=== PATIENT | female | born 1960 | race Caucasian/White ===

== ENCOUNTER 2017-04-14 16:17 | Outpatient (CLI) | payer MEDICAID ==
[2017-04-14 13:23] LABS: BASOPHILS % (AUTO) 0.8 %; EOSINOPHILS % (AUTO) 0.7 %; HCT - HEMATOCRIT 39.2 % (37.0-47.0); HGB - HEMOGLOBIN 13.5 g/dL (12.0-16.0); LYMPHOCYTES # (AUTO) 2.5 10^3/uL (1.5-3.5); LYMPHOCYTES % (AUTO) 53.7 %; MEAN CORPUSCULAR HEMOGLOBIN 30.3 pg (27.0-31.0); MEAN CORPUSCULAR HGB CONC 34.4 g/dL (32.0-36.0); MEAN CORPUSCULAR VOLUME 88.1 fL (81.0-99.0); MEAN PLATELET VOLUME 9.5 fL (7.9-10.8); MONOCYTES # (AUTO) 0.3 10^3/uL (0.0-1.0); MONOCYTES % (AUTO) 6.4 %; NEUTROPHILS # (AUTO) 1.8 10^3/uL (1.5-6.6); NEUTROPHILS % (AUTO) 38.4 %; RED BLOOD COUNT 4.45 10^6/uL (4.20-5.40); RED CELL DISTRIBUTION WIDTH 13.7 % (12.0-15.0); UNCORRECTED WHITE BLOOD COUNT 4.6 x10^3/uL; WHITE BLOOD COUNT 4.6 x10^3/uL (4.8-10.8)
[2017-04-14 13:44] LABS: ALBUMIN/GLOBULIN RATIO 1.7 (1.0-2.2); BILIRUBIN,TOTAL 0.4 mg/dL (0.2-1.0); CALCIUM 9.4 mg/dL (8.5-10.3); CREATININE 0.8 mg/dL (0.4-1.0); TOTAL PROTEIN 6.7 g/dL (6.7-8.2)
== END 2017-04-14 16:18 | disposition home or self-care (01) ==
LOC: LAB.N 16:17
PROVIDERS: ATTEND Nurse Practitioner Gerontology
DX: Z13.9 Encounter for screening, unspecified (principal)
CPT/HCPCS: 36415; 80053; 85025

== ENCOUNTER 2018-04-26 09:53 | Outpatient (CLI) | payer MEDICAID ==
[2018-04-26 14:24] LABS: CHOL/HDL RATIO 3.2 (<4.4); CHOLESTEROL 191 mg/dL; HDL CHOLESTEROL 59 mg/dL; LDL CHOLESTEROL,CALCULATED 117 mg/dL; VLDL CHOLESTEROL 15 mg/dL
== END 2018-04-26 09:54 | disposition home or self-care (01) ==
LOC: LAB.N 09:53
PROVIDERS: ATTEND Nurse Practitioner Gerontology
DX: Z13.9 Encounter for screening, unspecified (principal); R61 Generalized hyperhidrosis
CPT/HCPCS: 36415; 80061; 83721; 84443

== ENCOUNTER 2020-11-23 10:22 | Outpatient (CLI) | payer MEDICAID ==
[2020-11-23 18:35] LABS: BASOPHILS # (AUTO) 0.1 10^3/uL (0.0-0.1); BASOPHILS % (AUTO) 1.2 %; EOSINOPHILS % (AUTO) 0.5 %; HGB - HEMOGLOBIN 13.7 g/dL (12.0-16.0); LYMPHOCYTES # (AUTO) 2.3 10^3/uL (1.5-3.5); LYMPHOCYTES % (AUTO) 55.8 %; MEAN CORPUSCULAR HEMOGLOBIN 29.8 pg (27.0-31.0); MEAN CORPUSCULAR HGB CONC 32.8 g/dL (32.0-36.0); MEAN CORPUSCULAR VOLUME 90.9 fL (81.0-99.0); MEAN PLATELET VOLUME 10.2 fL (7.9-10.8); MONOCYTES # (AUTO) 0.3 10^3/uL (0.0-1.0); MONOCYTES % (AUTO) 6.2 %; NEUTROPHILS # (AUTO) 1.5 10^3/uL (1.5-6.6); NEUTROPHILS % (AUTO) 36.1 %; PLT - PLATELET COUNT 253 10^3/uL (130-450); RED CELL DISTRIBUTION WIDTH 13.2 % (12.0-15.0); WHITE BLOOD COUNT 4.2 x10^3/uL (4.8-10.8)
[2020-11-23 18:53] LABS: ALBUMIN 4.2 g/dL (3.2-5.5); ALBUMIN/GLOBULIN RATIO 1.7 (1.0-2.2); ALKALINE PHOSPHATASE 60 IU/L (42-121); ALT ALANINE AMINOTRANSFERASE 30 IU/L (10-60); AST ASPARTATE AMINOTRANSFERASE 23 IU/L (10-42); BILIRUBIN,TOTAL 0.7 mg/dL (0.2-1.0); BUN - BLOOD UREA NITROGEN 20 mg/dL (6-20); CALCIUM 9.3 mg/dL (8.5-10.3); CARBON DIOXIDE - CO2 26 mmol/L (21-32); CHLORIDE 106 mmol/L (101-111); CHOL/HDL RATIO 3.9 (<4.4); CHOLESTEROL 243 mg/dL; CREATININE 0.9 mg/dL (0.4-1.0); GLUCOSE 103 mg/dL (70-100); HDL CHOLESTEROL 62 mg/dL; LDL CHOLESTEROL,CALCULATED 169 mg/dL; LDL/HDL RATIO 2.7 (<4.4); SODIUM 140 mmol/L (135-145); TOTAL PROTEIN 6.7 g/dL (6.7-8.2); VLDL CHOLESTEROL 12 mg/dL
--- OUTSIDE RECORDS SUMMARY | 2020-11-28 01:33 | EXTERNAL MEDICAL SUMMARY RPT | Continuity of Care Document ---
:1960 Demographics Phone Unavailable Preferred Language [place]ut Marital Status Unknown Oriental Orthodox Affiliation Unknown Race Unknown Ethnic Group Unknown Author Organization [facility] Address [address] [id number] Phone Care Team Providers Name Role Phone Julian OBANDO, Unavailable Unavailable JULIAN LAM Unavailable Unavailable Bertha Chacon Unavailable Unavailable Cathie Lux Unavailable Unavailable Problems date description facility 2013-10-05 13:46 DISORDERS OF THYROID NEC [facility] 2016-01-18 10:54 AGE-RELATED OSTEOPOROSIS W/O [facility] CURRENT PATHOLOGICAL FRACTURE 2016-01-18 10:54 [facility] S[facility] OSTE[facility] 2016-02-13 08:36 ENCOUNTER FOR SCREENING, [facility] UNSPECIFIED 2017-04-14 16:17 ENCOUNTER FOR SCREENING, [facility] UNSPECIFIED 2018-04-26 09:53 GENERALIZED HYPERHIDROSIS [facility] 2018-04-26 09:53 ENCOUNTER FOR SCREENING, [facility] UNSPECIFIED 2020-11-23 00:00:00 TSH WITH REFLEX TO FT4 [facility] 2020-11-23 00:00:00 Screening for malignant [facility] neoplasms of colon [facility] 2020-11-23 00:00:00 COMPREHENSIVE METABOLIC PANEL [facility] 2020-11-23 00:00:00 LIPIDS SCREEN [facility] 2020-11-23 00:00:00 CBC W/Diff/Plt [facility] 2020-11-23 00:00:00 Encounter for screening [facility] 2020-11-23 00:00:00 Health-related behavior [facility] 2020-11-23 00:00:00 Tobacco use and exposure [facility] 2020-11-23 00:00:00 Exercise [facility] 2020-11-23 00:00:00 Never smoker [facility] 2020-11-23 00:00:00 Screening for malignant [facility] neoplasm of colon [facility] 2020-11-23 00:00:00 Little interest or pleasure in [facility] doing things? [facility] 2020-11-23 00:00:00 Feeling down, depressed, [facility]? [facility] 2020-11-23 00:00:00 Patient Health Questionnaire 2 [facility] item (PHQ2) total score [facility] 2020-11-23 00:00:00 Alcohol use [facility] 2020-11-23 00:00:00 Total score? [facility] 2020-11-23 10:22 ENCOUNTER FOR SCREENING, [facility] UNSPECIFIED Procedures date description facility 2020-11-23 00:00:00 TSH WITH REFLEX TO FT4 [facility] bermudez description facility 2020-11-23 00:00:00 COMPREHENSIVE METABOLIC PANEL On License [facility] date description facility 2020-11-23 00:00:00 LIPIDS SCREEN [facility] date description facility 2020-11-23 00:00:00 CBC W/Diff/Plt [facility] berm[facility] description facility 2020-11-23 00:00:00 [facility] Results Social History date description facility 2020-11-23 00:00:00 Never smoker [facility] Social History date description facility 2020-11-23 00:00:00 Never smoker [facility] date description facility [id number]
== END 2020-11-23 10:23 | disposition home or self-care (01) ==
LOC: LAB.N 10:22
PROVIDERS: ATTEND Nurse Practitioner Family
DX: Z13.9 Encounter for screening, unspecified (principal)
CPT/HCPCS: 36415; 80050; 80061; 83721

== ENCOUNTER 2021-12-02 09:57 | Outpatient (CLI) | payer OTHER ==
[2021-12-02 12:03] LABS: BASOPHILS # (AUTO) 0.1 10^3/uL (0.0-0.1); BASOPHILS % (AUTO) 0.9 %; EOSINOPHILS # (AUTO) 0.1 10^3/uL (0.0-0.7); EOSINOPHILS % (AUTO) 1.3 %; HCT - HEMATOCRIT 43.4 % (37.0-47.0); HGB - HEMOGLOBIN 14.5 g/dL (12.0-16.0); LYMPHOCYTES # (AUTO) 3.1 10^3/uL (1.5-3.5); LYMPHOCYTES % (AUTO) 58.1 %; MEAN CORPUSCULAR HEMOGLOBIN 30.3 pg (27.0-31.0); MEAN CORPUSCULAR HGB CONC 33.4 g/dL (32.0-36.0); MEAN CORPUSCULAR VOLUME 90.6 fL (81.0-99.0); MEAN PLATELET VOLUME 10.3 fL (7.9-10.8); MONOCYTES # (AUTO) 0.3 10^3/uL (0.0-1.0); MONOCYTES % (AUTO) 5.5 %; NEUTROPHILS # (AUTO) 1.8 10^3/uL (1.5-6.6); NEUTROPHILS % (AUTO) 34.2 %; PLT - PLATELET COUNT 273 10^3/uL (130-450); RED BLOOD COUNT 4.79 10^6/uL (4.20-5.40); WHITE BLOOD COUNT 5.3 x10^3/uL (4.8-10.8)
[2021-12-02 12:24] LABS: ALBUMIN 4.4 g/dL (3.2-5.5); ALBUMIN/GLOBULIN RATIO 1.5 (1.0-2.2); ALKALINE PHOSPHATASE 58 IU/L (42-121); ALT ALANINE AMINOTRANSFERASE 37 IU/L (10-60); AST ASPARTATE AMINOTRANSFERASE 26 IU/L (10-42); BILIRUBIN,TOTAL 0.9 mg/dL (0.2-1.0); BUN - BLOOD UREA NITROGEN 18 mg/dL (6-20); CALCIUM 9.4 mg/dL (8.5-10.3); CARBON DIOXIDE - CO2 28 mmol/L (21-32); CHLORIDE 103 mmol/L (101-111); CHOLESTEROL 239 mg/dL; CREATININE 0.8 mg/dL (0.4-1.0); GFR - MDRD 73 (>89); GLUCOSE 114 mg/dL (70-100); SODIUM 139 mmol/L (135-145); TOTAL PROTEIN 7.3 g/dL (6.7-8.2); TRIGLYCERIDES 57 mg/dL; VLDL CHOLESTEROL 11 mg/dL
[2021-12-02 12:28] LABS: THYROID STIMULATING HORMONE 3.5 uIU/mL (0.34-5.60)
[2021-12-02 12:42] LABS: CHOL/HDL RATIO 3.3 (<4.4); HDL CHOLESTEROL 72 mg/dL; LDL CHOLESTEROL,CALCULATED 156 mg/dL; LDL/HDL RATIO 2.2 (<4.4)
== END 2021-12-02 09:58 | disposition home or self-care (01) ==
LOC: LAB.N 09:57
PROVIDERS: ATTEND Nurse Practitioner
DX: Z13.9 Encounter for screening, unspecified (principal)
CPT/HCPCS: 36415; 80053; 80061; 83721; 84443; 85025